=== PATIENT | male | born 1990 | race Caucasian/White ===

== ENCOUNTER 2016-09-15 07:12 | Outpatient (CLI) | payer OTHER ==
--- NOTE | 2016-09-15 08:17 | US ---
EXAM: Ultrasound abdomen limited HISTORY: Fatty change of liver, not elsewhere classified COMPARISON: 08/18/2015 TECHNIQUE: Limited ultrasound abdomen right upper quadrant was performed FINDINGS: Evaluation limited due to areas of bowel gas shadowing and patient body habitus. Pancrea s is obscured secondary to bowel gas shadowing. Liver is mildly enlarged. Liver diffusely increase d in echogenicity. Portions of the liver obscured secondary to shadowing artifact. Main portal vein patent with normal direction of flow. Patient status post cholecystectomy. No biliary duct dilatio n with the common bile duct measuring 0.4 cm. Right kidney measures 11.9 cm in length without hydro nephrosis. IMPRESSION: 1. Hepatomegaly. Hepatic steatosis. 2. Status post cholecystectomy. No biliary duct dilation.
== END 2016-09-15 07:13 | disposition home or self-care (01) ==
LOC: RAD 07:12
PROVIDERS: ATTEND Nurse Practitioner Family
DX: K76.0 Fatty (change of) liver, not elsewhere classified (principal)

== ENCOUNTER 2016-12-11 07:10 | Outpatient (CLI) | payer OTHER ==
[2016-12-11 08:11] LABS: ALBUMIN 3.5 g/dL (3.4-5.0); ALBUMIN/GLOBULIN RATIO 0.92; ANION GAP 9.2; BILIRUBIN,TOTAL 0.52 mg/dL (0.00-1.20); BUN/CREATININE RATIO 9.63; CALCIUM 9.2 mg/dL (8.2-10.2); CHOL/HDL RATIO 6.5 (4.5-6.4); CREATININE 0.83 mg/dL (0.60-1.10); POTASSIUM 4.2 mmol/L (3.5-5.1); TOTAL PROTEIN 7.3 g/dL (6.4-8.2)
== END 2016-12-11 07:11 | disposition home or self-care (01) ==
LOC: LAB 07:10
PROVIDERS: ATTEND Nurse Practitioner Family
DX: E78.5 Hyperlipidemia, unspecified (principal); R79.89 Other specified abnormal findings of blood chemistry; I10 Essential (primary) hypertension
CPT/HCPCS: 80053; 80061; 84443

== ENCOUNTER 2017-03-05 11:28 | Outpatient (CLI) ==
[2017-03-05 12:08] LABS: BASOPHILS % (AUTO) 0.7 % (0.0-3.0); EOSINOPHILS # (AUTO) 0.5 K/ul (0.0-0.7); EOSINOPHILS % (AUTO) 8.2 % (0.0-7.0); HEMATOCRIT 50.3 % (42.0-52.0); HEMOGLOBIN 16.8 g/dl (14.0-18.0); IMMATURE GRANULOCYTE % (AUTO) 0.2 % (0.0-5.0); LYMPHOCYTES # (AUTO) 2.3 K/uL (0.60-3.4); LYMPHOCYTES % (AUTO) 38.7 (10.0-50.0); MEAN CORPUSCULAR HEMOGLOBIN 27.6 pg (27.0-31.0); MEAN CORPUSCULAR HGB CONC 33.4 (31.8-35.4); MEAN CORPUSCULAR VOLUME 82.7 fl (80.0-94.0); MONOCYTES # (AUTO) 0.5 K/uL (0.4-2.0); MONOCYTES % (AUTO) 8.5 (0-10); NEUTROPHILS # (AUTO) 2.6 K/ul (2.0-6.9); NEUTROPHILS % (AUTO) 43.7; PLATELET COUNT 172 10^3/uL (140-440); RED BLOOD COUNT 6.08 10^6/ul (4.70-6.10); WHITE BLOOD COUNT 5.87 K/ul (4.2-10.2)
[2017-03-05 12:21] LABS: ALBUMIN 3.9 g/dL (3.4-5.0); ALBUMIN/GLOBULIN RATIO 0.98; ANION GAP 17.5; BILIRUBIN,TOTAL 0.81 mg/dL (0.00-1.20); BUN/CREATININE RATIO 15.71; CALCIUM 10.8 mg/dL (8.2-10.2); CHOL/HDL RATIO 7.2 (4.5-6.4); CREATININE 0.7 mg/dL (0.60-1.10); POTASSIUM 4.5 mmol/L (3.5-5.1); TOTAL PROTEIN 7.9 g/dL (6.4-8.2)
== END 2017-03-05 11:29 | disposition home or self-care (01) ==
LOC: LAB 11:28
PROVIDERS: ATTEND Nurse Practitioner Family
DX: R73.9 Hyperglycemia, unspecified (principal); I10 Essential (primary) hypertension; E78.5 Hyperlipidemia, unspecified
CPT/HCPCS: 36415; 80053; 80061; 83036; 85025

== ENCOUNTER 2017-03-22 16:02 | Outpatient (CLI) | payer OTHER | END 2017-03-22 16:03 | disposition home or self-care (01) | LOC: LAB 16:02 | PROVIDERS: ATTEND Nurse Practitioner Family | DX: J02.9 Acute pharyngitis, unspecified (principal); R05 Cough | CPT/HCPCS: 87651; 87880 ==

== ENCOUNTER 2017-06-18 09:51 | Outpatient (CLI) ==
[2017-06-18 10:39] LABS: ALBUMIN 3.6 g/dL (3.4-5.0); ALBUMIN/GLOBULIN RATIO 0.9; BILIRUBIN,TOTAL 0.5 mg/dL (0.00-1.20); BUN/CREATININE RATIO 8.53; CALCIUM 9.8 mg/dL (8.2-10.2); CHOL/HDL RATIO 5.8 (4.5-6.4); CREATININE 0.82 mg/dL (0.60-1.10); TOTAL PROTEIN 7.6 g/dL (6.4-8.2)
== END 2017-06-18 09:52 | disposition home or self-care (01) ==
LOC: LAB 09:51
PROVIDERS: ATTEND Nurse Practitioner Family
DX: E78.5 Hyperlipidemia, unspecified (principal); E66.9 Obesity, unspecified; I10 Essential (primary) hypertension
CPT/HCPCS: 36415; 80053; 80061

== ENCOUNTER 2017-09-17 09:31 | Outpatient (CLI) | END 2017-09-17 09:32 | disposition home or self-care (01) | LOC: LAB 09:31 | PROVIDERS: ATTEND Nurse Practitioner Family | DX: I10 Essential (primary) hypertension (principal) | CPT/HCPCS: 36415; 80053; 80061; 85025 ==

== ENCOUNTER 2018-03-18 08:23 | Outpatient (CLI) | END 2018-03-18 08:24 | disposition home or self-care (01) | LOC: LAB 08:23 | PROVIDERS: ATTEND Nurse Practitioner Family | DX: E78.5 Hyperlipidemia, unspecified (principal); I10 Essential (primary) hypertension | CPT/HCPCS: 36415; 80053; 80061 ==

== ENCOUNTER 2018-10-28 08:14 | Outpatient (CLI) | END 2018-10-28 08:15 | disposition home or self-care (01) | LOC: LAB 08:14 | PROVIDERS: ATTEND Nurse Practitioner Family | DX: R79.89 Other specified abnormal findings of blood chemistry (principal); E66.9 Obesity, unspecified; I10 Essential (primary) hypertension | CPT/HCPCS: 36415; 80053; 80061; 85025 ==

== ENCOUNTER 2018-11-16 06:31 | Outpatient (CLI) ==
--- NOTE | 2018-11-16 08:37 | US ---
EXAM: ULTRASOUND ABDOMEN LIMITED HISTORY: Fatty liver FINDINGS: Ultrasound abdomen, limited. Hewitt-scale ultrasound and color Doppler was performed. Live r size was measured at 18.9 cm which would indicate hepatomegaly. Diffuse increased sound attenuatio n by the liver parenchyma can be consistent with steatosis. No focal hepatic lesion or evidence of i ntrahepatic biliary dilatation was identified. The main portal vein is patent and hepatopedal. Gallbladder has been removed. Normal common bile duct diameter of 0.52 cm. The visualized pancreas was grossly unremarkable. No ascites identified. Survey of the right kidney revealed no hydronephro sis. IMPRESSION: 1. Enlarged fatty liver. 2. Post cholecystectomy state.
== END 2018-11-16 06:32 | disposition home or self-care (01) ==
LOC: RAD 06:31
PROVIDERS: ATTEND Nurse Practitioner Family
DX: K76.0 Fatty (change of) liver, not elsewhere classified (principal); R94.5 Abnormal results of liver function studies